=== PATIENT | male | born 1990 | race Hispanic/Latino ===

== ENCOUNTER 2018-08-03 06:17 | Emergency (ER) | payer SELFPAY ==
[2018-08-03] MEDS ORDERED: LIDOCAINE 2% MPF 5 ML VIAL ONE (06:44)
--- NOTE | 2018-08-03 07:35 | EDPHYS ---
Physician Documentation [facility] Name: Jayy Issa Age: 27 yrs Sex: Male : 1990 Arrival Date: 08/03/2018 Time: 06:19 Bed 7 Private MD: ED Physician Gerson Gomez HPI: 08/03 07:05 This 27 yrs old Male presents to ER via Ambulatory with complaints of Laceration To kb Hand. 07:05 The patient has a laceration related to: turning on welding machine, reached underneath kb it and something cut his finger occurred at work, and there are no complicating factors. The injury was accidental. The laceration(s) is(are) located on the palmar aspect of middle phalanx of right middle finger. Onset: The symptoms/episode began/occurred just prior to arrival. Associated signs and symptoms: The patient has no apparent associated signs or symptoms. The patient has not experienced similar symptoms in the past. The patient has not recently seen a physician. Historical: - Allergies: 06:32 No Known Allergies; ea - Home Meds: 06:32 None [Active]; ea - PMHx: 06:32 None; ea - PSHx: 06:32 None; ea - Immunization history:: Adult Immunizations up to date, Last tetanus immunization: < 5 years ago. - Social history:: Smoking status: Patient uses tobacco products, smokes one-half pack cigarettes per day. - Ebola Screening: : No symptoms or risks identified at this time. ROS: 07:03 Constitutional: Negative for fever, chills, and weight loss, Cardiovascular: Negative kb for chest pain, palpitations, and edema, Respiratory: Negative for shortness of breath, cough, wheezing, and pleuritic chest pain, Abdomen/GI: Negative for abdominal pain, nausea, vomiting, diarrhea, and constipation, MS/Extremity: Negative for injury and deformity, Neuro: Negative for headache, weakness, numbness, tingling, and seizure. 07:03 Skin: Positive for laceration(s), of the palmar aspect of middle phalanx of right middle finger. Exam: 07:03 Constitutional: This is a well developed, well nourished patient who is awake, alert, kb and in no acute distress. Head/Face: Normocephalic, atraumatic. Neck: Trachea midline, no thyromegaly or masses palpated, and no cervical lymphadenopathy. Supple, full range of motion without nuchal rigidity, or vertebral point tenderness. No Meningismus. Chest/axilla: Normal chest wall appearance and motion. Nontender with no deformity. No lesions are appreciated. Cardiovascular: Regular rate and rhythm with a normal S1 and S2. No gallops, murmurs, or rubs. Normal PMI, no JVD. No pulse deficits. Respiratory: Lungs have equal breath sounds bilaterally, clear to auscultation and percussion. No rales, rhonchi or wheezes noted. No increased work of breathing, no retractions or nasal flaring. Abdomen/GI: Soft, non-tender, with normal bowel sounds. No distension or tympany. No guarding or rebound. No evidence of tenderness throughout. MS/ Extremity: Pulses equal, no cyanosis. Neurovascular intact. Full, normal range of motion. Neuro: Awake and alert, GCS 15, oriented to person, place, time, and situation. Cranial nerves II-XII grossly intact. Motor strength 5/5 in all extremities. Sensory grossly intact. Cerebellar exam normal. Normal gait. 07:03 Skin: injury, laceration(s), the wound is approximately 5 cm(s), of the palmar aspect of middle phalanx of right middle finger, that can be described as clean, no foreign body, linear, without bleeding. Vital Signs: 06:29 BP 158 / 99; Pulse 113; Resp 16; Temp 97.6; Pulse Ox 100% on R/A; Weight 72.57 kg; ea Height 5 ft. 11 in. (180.34 cm); Pain 5/10; 07:52 BP 140 / 82; Pulse 89; Resp 17; Temp 97.7; Pulse Ox 100% on R/A; Pain 2/10; sg 06:29 Body Mass Index 22.32 (72.57 kg, 180.34 cm) ea Procedures: 07:04 Nerve block: (digital) of palmar aspect of proximal phalanx of right middle finger kb Medication: Lidocaine 1% without epinephrine Marcaine 0.5%, Amount: 5 mls were injected, Effect: the patient has resolution of the pain, Set up for procedure. Performed by Yuly RODRIGEZ Patient tolerated well. Laceration: 07:33 Wound Repair of 5cm ( 2.0in ) subcutaneous laceration to palmar aspect of middle kb phalanx of right middle finger. Linear shaped.. Distal neuro/vascular/tendon intact. Anesthesia: Digital block administered with 1% lidocaine. Wound prep: Extensive cleansing with betadine by me, Wound irrigation with saline by me. Skin closed with 6 4-0 Prolene using interrupted sutures and sterile technique. Dressed with tube gauze. Patient tolerated well. MDM: 06:27 Patient medically screened. kb 07:03 Data reviewed: vital signs, nurses notes. Data interpreted: Pulse oximetry: on room air kb is 100 %. Interpretation: normal. Counseling: I had a detailed discussion with the patient and/or guardian regarding: the historical points, exam findings, and any diagnostic results supporting the discharge/admit diagnosis, the need for outpatient follow up, a family practitioner, to return to the emergency department if symptoms worsen or persist or if there are any questions or concerns that arise at home. 08/03 07:30 Order name: Prolene, Sutures; Complete Time: 07:55 kb 08/03 07:30 Order name: Dressing - Wound; Complete Time: 07:55 kb 08/03 07:30 Order name: Gloves, Sterile; Complete Time: 07:55 kb 08/03 07:30 Order name: Setup Suture Tray; Complete Time: 07:55 kb Administered Medications: 07:54 Drug: Lidocaine (1 %) 1 vials {Note: medication administered by Hannah BYNREP for sg laceration repair.} Volume: 5 ml; Route: Infiltration; 07:55 Drug: Bupivacaine (0.5 %) 1 vials {Note: medication administered by Hannah [facility] for sg laceration repair.} Volume: 10 ml; Route: Infiltration; Disposition: 10:30 Co-signature as Attending Physician, Gerson Gomez MD I agree with the assessment and martina plan of care. Chart complete. Disposition: 08/03/18 07:34 Discharged to Home. Impression: Laceration without foreign body of right middle finger without damage to nail. - Condition is Stable. - Discharge Instructions: Laceration Care, Adult, [id number]. - Prescriptions for Tylenol- Codeine #3 300-30 mg Oral Tablet - take 1 tablet by ORAL route every 4 hours As needed; 6 tablet. - Medication Reconciliation Form, Thank You Letter, Antibiotic Education, Prescription Opioid Use form. - Work release form (08/03/18 07:56). sg - Follow up: Emergency Department; When: As needed; Reason: Worsening of condition. Follow up: Private Physician; When: 2 - 3 days; Reason: Recheck today's complaints, Continuance of care, Re-evaluation by your physician. Signatures: Yuly Stafford, ISELA-C ISELA-Andi Evans RN RN Gerson Snow MD MD cha Antunez, Elena RN VENKATESH rivers Corrections: (The following items were deleted from the chart) 07:56 07:34 08/03/2018 07:34 Discharged to Home. Impression: Laceration without foreign body sg of right middle finger without damage to nail. Condition is Stable. Forms are Medication Reconciliation Form, Thank You Letter, Antibiotic Education, Prescription Opioid Use. Follow up: Emergency Department; When: As needed; Reason: Worsening of condition. Follow up: Private Physician; When: 2 - 3 days; Reason: Recheck today's complaints, Continuance of care, Re-evaluation by your physician. kb
--- NOTE | 2018-08-03 07:35 | ER ---
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 Transition of care: patient was not received from another setting of care. Complicating Factors: There are no complicating factors for this patient. Onset of symptoms was August 03, 2018. Risk Assessment: Do you want to hurt yourself or someone else? Patient reports no desire to harm self or others. Initial Sepsis Screen: Does the patient meet any 2 criteria? HR > 90 bpm. Does the patient have a suspected source of infection? No. Patient's initial sepsis screen is negative. Care prior to arrival: None. 06:26 Method Of Arrival: Ambulatory ea 06:26 Acuity: LA 3 ea Historical: - Allergies: 06:32 No Known Allergies; ea - Home Meds: 06:32 None [Active]; ea - PMHx: 06:32 None; ea - PSHx: 06:32 None; ea - Immunization history:: Adult Immunizations up to date, Last tetanus immunization: < 5 years ago. - Social history:: Smoking status: Patient uses tobacco products, smokes one-half pack cigarettes per day. - Ebola Screening: : No symptoms or risks identified at this time. Screenin:27 Abuse screen: Denies threats or abuse. Nutritional screening: No deficits noted. ea Tuberculosis screening: No symptoms or risk factors identified. Fall Risk None identified. Assessment: 06:32 General: Appears in no apparent distress. Behavior is calm, cooperative, appropriate ea for age. Pain: Complains of pain in palmar aspect of middle phalanx of right middle finger and palmar aspect of proximal phalanx of right middle finger. Neuro: Level of Consciousness is awake, alert, obeys commands, Oriented to person, place, time, situation. Cardiovascular: Patient's skin is warm and dry. Respiratory: Airway is patent Respiratory effort is even, unlabored, Respiratory pattern is regular, symmetrical. Musculoskeletal: Circulation, motion, and sensation intact. Injury Description: Laceration sustained to palmar aspect of middle phalanx of right middle finger and palmar aspect of proximal phalanx of right middle finger is jagged, 2.6 to 7.5 cm long, not bleeding, was sustained 30-60 minutes ago. is bleeding a small amount. Vital Signs: 06:29 BP 158 / 99; Pulse 113; Resp 16; Temp 97.6; Pulse Ox 100% on R/A; Weight 72.57 kg; ea Height 5 ft. 11 in. (180.34 cm); Pain 5/10; 07:52 BP 140 / 82; Pulse 89; Resp 17; Temp 97.7; Pulse Ox 100% on R/A; Pain 2/10; sg 06:29 Body Mass Index 22.32 (72.57 kg, 180.34 cm) ea ED Course: 06:19 Patient arrived in ED. ag3 06:25 [facility]uly Stafford [facility]C [facility] kb 06:25 Gerson Gomez MD is Attending Physician. kb 06:25 Amie Myers, VENKATESH is Primary Nurse. ea 06:27 Triage completed. ea 06:27 Arm band placed on right wrist. Patient placed in an exam room, on a stretcher, on ea pulse oximetry. 06:28 Patient has correct armband on for positive identification. Bed in low position. Call ea light in reach. 06:30 Wound care: to laceration located on right hand was cleaned with soap and water. bb 07:55 Dressings: non-adherent dressing x 1 palmar aspect of middle phalanx of right middle sg finger 4X4s X 1; palmar aspect of middle phalanx of right middle finger. Wound care: to laceration located on palmar aspect of middle phalanx of right middle finger was cleaned with soap and water, dressed with Neosporin, Patient tolerated well. 07:55 No provider procedures requiring assistance completed. Patient did not have IV access sg during this emergency room visit. Administered Medications: 07:54 Drug: Lidocaine (1 %) 1 vials {Note: medication administered by Hannah WEISS for sg laceration repair.} Volume: 5 ml; Route: Infiltration; 07:55 Drug: Bupivacaine (0.5 %) 1 vials {Note: medication administered by K.Rivera [employer]ENT[employer] CLERK for sg laceration repair.} Volume: 10 ml; Route: Infiltration; Outcome: 07:34 Discharge ordered by MD. mora 07:52 Discharged to home ambulatory. sg 07:52 Condition: good 07:52 Discharge instructions given to patient, Instructed on discharge instructions, follow up and referral plans. medication usage, wound care, Demonstrated understanding of instructions, follow-up care, wound care, Prescriptions given X 1. 07:56 Patient left the ED. sg Signatures: Yuly Stafford, CAR RENTAL CLERK-C CAR RENTAL CLERK-CkAndi Patton, RN RN Haydee Major, RN RN Amie Arrieta, RN Saima Mallory ea ag3
[2018-08-03] MEDS ORDERED: LIDOCAINE 1% MPF 30 ML VIAL ONE (07:52)
== END 2018-08-03 07:56 | disposition home or self-care (01) ==
LOC: ER 06:17
PROC: 0JQJ0ZZ Repair Right Hand Subcutaneous Tissue and Fascia, Open Approach (ICD-10-PCS; principal; 2018-08-03)
DX: S61.212A Laceration without foreign body of right middle finger without damage to nail, initial encounter (principal); W31.89XA Contact with other specified machinery, initial encounter; Y93.89 Activity, other specified; Y92.89 Other specified places as the place of occurrence of the external cause; Y99.8 Other external cause status; F17.210 Nicotine dependence, cigarettes, uncomplicated
CPT/HCPCS: 64450; 99284